=== PATIENT | male | born 1970 | race Caucasian/White ===

== ENCOUNTER 2016-09-21 13:28 | Emergency (ER) | payer BC, OTHER ==
[2016-09-21 13:43] VITALS: BMI 34.5
--- NOTE | 2016-09-21 13:44 | EDPRACDOC ---
- General Stated Complaint: FALL - LEFT SHOULDER/LOWER BACK/RIGHT FOOT Time Seen by Provider: 09/21/16 13:41 Information Source: Patient - History of Present Illness Onset: 1030 HPI: Pt states he was walking on floor joist at work and it broke causing him to fall. C/o L shoulder, lower back and R foot pain. Denies LOC, vision changes, n /v, neck pain, cp, sob, abd pain, loss of control bowel or bladder, numbness. R hand dominate Pain Severity: Reports: Moderate Injuries/Pain Location: Reports: upper extremity, back, lower extremity Reason for Fall: Reports: other (joist broke) Loss of Consciousness: no loss of consciousness Modifying Factors: improves with: movement Associated Symptoms (Fall): Reports: denies symptoms Home Medications: Ambulatory Orders Cyclobenzaprine HCl [Flexeril] 10 mg PO TID PRN #15 tablet 09/21/16 Hydrocodone Bit/Acetaminophen [Lortab 5/325] 1 tab PO Q4-6H PRN #15 tab Ibuprofen 800 mg PO TID PRN #30 tablet 09/21/16 ED Past Medical History - History Reviewed Yes Nurses notes reviewed and agree except as marked - Social Medical History Smoking Status: Never smoker ETOH: None Substance Abuse: None EDM Review of Systems - Review of Systems Constitutional: No Symptoms Reported. negative: Fever, Chills, Weakness, Fatigue, Loss of Appetite Eyes: No Symptoms Reported. negative: Redness, Blurred Vision, Double Vision, Discharge, Pain, Light Sensitive, Photophobia Respiratory: No Symptoms Reported. negative: Cough, Brassy Cough, Barky Cough, Shortness of Breath, Wheezing, Hemoptysis Cardiovascular: No Symptoms Reported. negative: Chest Pain, Palpitations, Syncope, Edema, Orthopnea, PND, Skin Mottling, Cyanosis Gastrointestinal: No Symptoms Reported. negative: Pain, Constipation, Nausea, Vomiting, Diarrhea, Melena, Formula Intolerance Genitourinary: No Symptoms Reported. negative: Dysuria, Hematuria, Frequency, Discharge, Bleeding, Testicular Pain, Neurological: No Symptoms Reported. negative: Headache, Dizziness, Seizure, Numbness, Weakness, Speech Difficulty, Gait Difficulty Musculoskeletal: Back, Foot, Shoulder Integumentary: No Symptoms Reported. negative: Itching, Rash, Bruising, Wound Allergic/Immunologic: No Symptoms Reported. negative: Hives, Itching Hematologic: No Symptoms Reported. negative: Lymphadenopathy, Easy Bruising, Easy Bleeding Psychiatric: No Symptoms Reported. negative: Anxiety, Depression, Hallucinations, Insomnia, Suicidal - Physical Exam Constitutional: No apparent distress, Alert (Awake) Oriented to: Time, Person, Place Last recorded Vital Signs: Oxygen Pulse Oxygen Saturation O2 Device Oxygen Flow Rate Fraction of Inspired Oxygen ( FIO2) - HEENT Head: Normal ( normocephalic) Eye Exam: Normal (PERRL, EOMI, Sclera white) Neck: Normal (FROM, trachea at midline) - Respiratory/Cardiovascular Respiratory: Normal - CTA (BBS clear to auscultation without adventitious sounds ) Cardiovascular: Normal (RRR without murmur, gallop or rub) - GI Auscultation: Normal (NABS) Palpation: Normal (Soft,No rebound or guarding, non distended) Tenderness: Non tender, Other (no LUQ or ruq tenderness) Velez's Sign: Negative - Musculoskeletal Back: Lumbar TTP Extremities: Normal (Normal tone, Pulses 2+ No cyanosis or edema, FROM) - Integumentary Skin: Normal, Warm, Dry Lymphatics: Normal (no adenopathy) - Neurologic Memory Impaired: Normal Motor Function: Normal (Normal tone, Pulses 2+ No cyanosis or edema, FROM) Mood Description: Normal Perception: Normal ED Injury/Fall Exam - Physical Exam Head Injury: no evidence of injury Extremity Exam: pain with movement (L shoulder, R foot), tenderness (L anterior , superior and posterior shoulder tenderness) Skin: Normal, Warm, Dry - Yvonne Coma Score Best Eye Response ([place]): (4) open spontaneously Best Verbal Response (Yvonne): (5) oriented Best Motor Response ([place]): (6) obeys commands Yvonne Total: 15 - Differential Diagnosis Contusion, Fracture, Mechanical Fall, Sprain, Strain - Diagnostic Imaging Shoulder Image interpreted by: Radiologist IMPRESSION: No fracture or dislocation. No appreciable arthropathy. Foot Image interpreted by: Radiologist IMPRESSION: 1. No definite fracture identified. There is spurring at the first digit metatarsophalangeal joint laterally which has some irregularity, favoring chronic degenerative findings over an avulsion injury, correlate with any point tenderness specifically in this location. L-Spine Image interpreted by: Radiologist IMPRESSION: 1. Mild lumbar spondylosis. 2. No acute osseous abnormality identified. - Additional Information no point tenderness of R MCP joint Decision Time to Discharge: 14:18 - Departure Disposition: Home Condition: Good Final Diagnosis: Lumbar strain Qualifiers: Encounter type: initial encounter Qualified Code(s): S39.012A - Strain of muscle, fascia and tendon of lower back, initial encounter Sprain of left shoulder Qualifiers: Encounter type: initial encounter Shoulder sprain type: unspecified sprain Qualified Code(s): S43.402A - Unspecified sprain of left shoulder joint, initial encounter Right foot sprain Qualifiers: Encounter type: initial encounter Qualified Code(s): S93.601A - Unspecified sprain of right foot, initial encounter Instructions: Shoulder Sprain (ED), Foot Sprain (ED), Core Strengthening Exercises (GEN), Thoracic (Lumbar) Strain Education/Counseling Given To: Patient Education/Counseling Given Regarding: Diagnosis, Treatment, Follow Up Referrals: Ghislaine Kelley DO [Primary Care Provider] - One Week Richard Mendoza MD [Staff Physician] - One Week Prescriptions: Cyclobenzaprine HCl [Flexeril] 10 mg PO TID PRN #15 tablet PRN Reason: Pain Hydrocodone Bit/Acetaminophen [Lortab 5/325] 1 tab PO Q4-6H PRN #15 tab PRN Reason: Pain Ibuprofen 800 mg PO TID PRN #30 tablet PRN Reason: Pain Additional Instructions: Return for worse or different symptoms.
--- NOTE | 2016-09-21 14:12 | DIRPT ---
CLINICAL DATA: Fall. Lateral right foot pain and swelling. EXAM: RIGHT FOOT COMPLETE - 3+ VIEW COMPARISON: None. FINDINGS: Mild degenerative spurring laterally at the first metatarsophalangeal joint. Lisfranc joint alignment normal. Calcific irregularity along the lateral base of the proximal phalanx of the great toe probably related to spurring, less likely an acute avulsion, correlate with point tenderness in this vicinity. Fifth metatarsal appears intact. Achilles calcaneal spur. No additional significant findings. IMPRESSION: 1. No definite fracture identified. There is spurring at the first digit metatarsophalangeal joint laterally which has some irregularity, favoring chronic degenerative findings over an avulsion injury, correlate with any point tenderness specifically in this location. Electronically Signed By: Edvin Aviles M.D. On: 09/21/2016 14:09
--- NOTE | 2016-09-21 14:15 | DIRPT ---
CLINICAL DATA: Pain following fall EXAM: LEFT SHOULDER - 2+ VIEW COMPARISON: None. FINDINGS: Frontal, Y scapular, and axillary images were obtained. There is no demonstrable fracture or dislocation. The joint spaces appear intact. No erosive change or intra-articular calcification. Visualized left lung clear. IMPRESSION: No fracture or dislocation. No appreciable arthropathy. Electronically Signed By: Artemio Kwon III, M.D. On: 09/21/2016 14:12
--- NOTE | 2016-09-21 14:16 | DIRPT ---
CLINICAL DATA: Fall this morning. Floor joist broke while patient was standing on it. Left-sided low back pain. Initial encounter. EXAM: LUMBAR SPINE - COMPLETE 4+ VIEW COMPARISON: None. FINDINGS: There are 5 non rib-bearing lumbar type vertebral bodies. S1 is partially lumbarized with a very rudimentary S1-2 disc space. There is trace retrolisthesis of L5 on S1, and there is trace anterolisthesis of L3 on L4, both most likely degenerative in nature. Vertebral body heights are preserved without evidence of compression fracture. No pars defects are identified. Minimal disc space narrowing is present from L3-4 to L5-S1. [id number] marginal endplate osteophytosis is noted from L3-L5. IMPRESSION: 1. Mild lumbar spondylosis. 2. No acute osseous abnormality identified. Electronically Signed By: Jw Hamm M.D. On: 09/21/2016 14:14
[2016-09-21 14:42] VITALS: BP 140/81; PULSE 69
== END 2016-09-21 14:42 | disposition home or self-care (01) ==
LOC: ED 13:28
DX: S39.012A Strain of muscle, fascia and tendon of lower back, initial encounter (principal); S43.402A Unspecified sprain of left shoulder joint, initial encounter; W17.89XA Other fall from one level to another, initial encounter; Y93.89 Activity, other specified; Y99.0 Civilian activity done for income or pay
CPT/HCPCS: 72110; 80307; 99282